=== PATIENT | male | born 2000 | race Caucasian/White ===

== ENCOUNTER 2023-08-14 14:37 | Emergency (ER) | payer BC, SELFPAY ==
[2023-08-14 14:37] VITALS: BP 122/74; PULSE 94; RESP 18; TEMP 35.5; O2SAT 95; BMI 21.5
--- NOTE | 2023-08-14 14:46 | CT_ITS ---
STUDY: CT SOFT TISSUE NECK WITH CONTRAST REASON FOR EXAM: Male, 23 years old. FB sensation x 4 days RADIATION DOSAGE (If Supplied By Facility): CTDIvol = ( 15.50 ) mGy, DLP = ( 546.03 ) mGycm TECHNIQUE: The patient was scanned in a multi-detector CT scanner. High resolution transaxial imaging was performed following intravenous administration of IV 75mL [id number]-300. Sagittal and coronal images were reconstructed. Individualized dose optimization techniques were used for this CT. COMPARISON: None. FINDINGS: Normal bilateral parotid glands. Normal bilateral cottrell operator spaces. Normal bilateral parapharyngeal spaces. Normal bilateral carotid spaces. Normal bilateral sublingual and submandibular glands and spaces. Normal visualized nasopharynx. Normal retropharyngeal space. Normal perivertebral space. Normal visualized bilateral faucial tonsils. The visualized tongue, tongue base and oropharynx are normal. The visualized cervical lymph nodes (levels I-) are within normal size limits, and maintain normal morphology. There is no demonstrated solid or cystic mass lesion. There is no abnormal contrast enhancement. Normal epiglottis, bilateral vallecula and hypopharynx. The pre-epiglottic and paraglottic adipose spaces are normal. Normal visualized bilateral piriform sinuses, aryepiglottic folds, vocal cords, and arytenoid-cricoid articulations. Normal subglottic trachea. Normal bilateral lobes of the thyroid gland. Normal visualized pulmonary apices. Normal visualized paranasal sinuses. Normal visualized cervical spine. CT/Soft Tissue Neck WITH Contrast IMPRESSION: Normal enhanced CT examination of the soft tissues of the neck. Electronically Signed: Saul Cope MD at 15:20 EDT ,
--- NOTE | 2023-08-14 14:48 | EX.ED.DYSGE1 ---
HPI History of Present Illness Chief Complaint: Foreign Body Detail of Chief Complaint: Patient presents with complaint of foreign body sensation noted of the ster Informant: patient Onset/Context/Timing Onset: Days Context: Sudden Onset Timing: Continuous and Waxes and wanes Quality: Foreign body sensation Location: Area of the sternal notch Current Severity: Mild Maximum Severity: Moderate Worsened by: Eating or drinking Relieved by: Nothing Associated Symptoms Associated Symptoms: No change in voice, fever or chills. Question weight loss Narrative Narrative: Patient is 23-year-old male who [facility]. He was sent to the ER by Tracy who saw him. She did call prior to his arrival. Last 3 to 4 days he complains of a foreign body sensation. He has had gagging which she has not had in the past. He feels there is something stuck. He still states 20 attempted to take a Claritin pill he had trouble swallowing. He states he is able to drink liquids with no problem. He does have history of reflux. He denies eructation. He denies waking up in the middle night because of burning sensation in his throat. He denies shortness of breath, wheezing. Tracy informed me that he almost vomited at the [facility]. He is having no sensation of nausea or vomiting at this time. There is no family history of leukemia, lymphoma esophageal cancer etc. Prior similar symptoms: No Recent Illness/Hospitalization: No PFSH PFSH Medical History no medical history Home Medications pantoprazole 40 mg tablet,delayed release (Protonix) 40 mg PO DAILY #30 tabs 08/14/23 [Rx Last Taken Unknown] Allergy/AdvReac Type Severity Reaction Status Date / Time No Known Allergies Allergy Verified 08/14/23 14:38 Social History (Updated 08/14/23 @ 14:[address] Leopoldo Alberto MD) household members: significant other Smoking Status: Current some day smoker tobacco type: cigarettes ROS ROS ED Constitutional Constitutional ED: Denies chills, fever(s), subjective or sweats Eyes Eyes: Denies blurry vision, change in vision or diplopia ENT ENT ED: Denies ear pain, rhinorrhea or sore throat Cardiovascular Cardiovascular: Denies chest pain, palpitations or racing heartbeat Respiratory/Chest Respiratory/Chest: Denies cough, dyspnea or dyspnea on exertion Gastrointestinal Gastrointestinal: Reports nausea and vomiting Psychiatric Psychiatric: Reports anxiety Endocrine Endocrinology: Denies cold intolerance or heat intolerance Hematologic/Lymphatic Hematologic/Lymphatic: Reports systems reviewed and no addt'l complaints, except as documented EXAM Physical Exam Const Vital Signs: 08/14/23 14:37 08/14/23 14:47 Temperature 96 F L Temperature Source Temporal Pulse Rate 94 Respiratory Rate 18 Respiratory Effort Normal Non-Labored Respiratory Pattern Normal Blood Pressure 122/74 H Blood Pressure Mean 90 Pulse Ox 95 Oxygen Delivery Method Room Air Positive well nourished and well developed General Appearance ED: well developed and NAD HEENT Reports moist mucous membranes HEENT Narrative: Head is atraumatic normocephalic. Nares patent. Posterior pharynx is normal. Eyes PERRL and EOMs intact bilaterally General Eye ED: Negative for pale conjunctiva or scleral icterus Neck no lymphadenopathy, supple and no JVD Neck Narrative: Question of rumbling sounds auscultation over the larynx on expiration only. Chest Wall inspection of chest normal and palpation of chest normal Resp normal respiratory effort and clear to auscultation bilaterally Cardio regular rate, regular rhythm, S1 normal heart sound, S2 normal heart sound and no murmurs GI normal to inspection, nondistended, normoactive bowel sounds, non-tender and non-distended; Negative for hepatosplenomegaly Neuro oriented x3 and CN's II-XII intact bilaterally Psych mental status grossly normal Skin Skin Narrative: Patient has dry skin noted. Otherwise dermatologic exam is unremarkable. MDM MDM MDM Narrative Medical decision making narrative: With foreign body sensation for 3 to 4 days affecting his activity and gagging dry heaves will obtain CT of the neck to evaluate for any anatomical anomaly. This may represent problems related to reflux. History & Record Review Additional record(s) reviewed:: Prior labs and No prior records Lab Data Attestation: I reviewed the patient's lab results. Lab results narrative: White count is slightly elevated with shift. There is no bandemia. H&H and indices are normal. Sed rate is less than 1. Comprehensive metabolic panel is remarkable glucose of 118 otherwise unremarkable with a normal CO2 anion gap. Alkaline phosphatase normal. Calcium normal. Albumin is normal. Labs: Laboratory Results - last 24 hr 08/14/23 14:54 WBC 12.2 H RBC 5.24 Hgb 16.0 Hct 47.8 MCV 91.2 MCH 30.5 MCHC 33.5 RDW Std Deviation 43.4 RDW Coeff of Jennifer 12.9 Plt Count 282 MPV 10.5 Immature Gran % (Auto) 0.300 Neut % (Auto) 83.7 H Lymph % (Auto) 10.3 L Christian % (Auto) 5.1 Eos % (Auto) 0.3 Baso % (Auto) 0.3 Absolute Neuts (auto) 10.2 H Absolute Lymphs (auto) 1.25 Nucleated RBC % 0 ESR < 1 Sodium 139 Potassium 3.4 L Chloride 107 Carbon Dioxide 24.0 Anion Gap 8 BUN 9 Creatinine 1.04 Estim Creat Clear Calc 98.49 Est GFR (MDRD) Af Amer 115 Est GFR (MDRD) Non-Af 95 BUN/Creatinine Ratio 8.7 L Glucose 118 H Calcium 10.0 Total Bilirubin 0.70 AST 14 L ALT 36 Alkaline Phosphatase 74 Total Protein 8.0 Albumin 4.7 Globulin 3.3 Albumin/Globulin Ratio 1.4 Radiography Diagnostic Testing: Clinical Impression(s) from Imaging Studies Soft Tissue Neck CT 08/14/23 14:46 IMPRESSION: Normal enhanced CT examination of the soft tissues of the neck. Electronically Signed: Saul Cope MD at 15:20 EDT , Treatment and Re-Evaluation :: Patient was informed of his results. Suspect this is probably related to GERD. Will refer to Dr. Shoemaker for possible EGD and Dr. Dubon for possible indirect laryngoscopy to determine if there is any changes of the epiglottis or proximal esophageal area that would suggest reflux and cause of his symptoms. Will place patient on PPI. Discharge Plan Triage Chief Complaint: Foreign Body ED Provider: RemyLeopoldo Dx/Rx/DC Orders Clinical Impression: Leukocytosis, Hx of gastroesophageal reflux (GERD), Foreign body sensation in throat Instructions: GERD Lifestyle Changes, ED GERD (Adult) Prescriptions: New pantoprazole [Protonix] 40 mg tablet,delayed release (DR/EC) 40 mg PO DAILY Qty: 30 0RF Primary Care Provider: Care Physician,No Primary Referrals: Leeroy Qureshi MD [Med Staff - Active Staff] - 1 Week Perfecto Shoemaker DO [Med Staff - Active Staff] - 1 Week Care Physician,No Primary [Primary Care Provider] - Disposition Disposition: Home, Self Care
[2023-08-14 15:13] LABS: Erythrocyte Sedimentation Rate < 1 mm/hr (0-20)
[2023-08-14 15:16] LABS: Absolute Lymphocyte Count 1.25 X10^3/uL (0.83-4.51); Absolute Neutrophil Count 10.2 X10^3/uL (2.0-7.7); Basophil# 0.04 X10^3/uL; Basophil% 0.3 % (0-1); Eosinophil# 0.04 X10^3/uL; Eosinophils% 0.3 % (0-5); Hematocrit 47.8 % (40-54); Lymphocyte # 1.25 X10^3/ul (0.83-4.51); Lymphocyte % 10.3 % (19-41); Mean Corp Hgb Conc 33.5 g/dL (32-36); Mean Corpuscular Hgb 30.5 pg (27.0-32.0); Mean Corpuscular Volume 91.2 fL (80-94); Mean Platelet Vol. 10.5 fl (6.2-12.0); Monocyte# 0.62 X10^3/uL; Monocyte% 5.1 % (0-10); NRBC Flagged by Analyzer 0 % (0-5); Neutrophil # 10.18 X10^3/uL (2.7-7.7); Neutrophil % 83.7 % (47-70); Platelet Count 282 K/mm3 (150-450); RBC Distribution Width CV 12.9 % (11.6-14.6); RBC Distribution Width SD 43.4 fl (35.1-43.9); Red Blood Count 5.24 M/mm3 (4.6-6.2); White Blood Count 12.2 K/mm3 (4.4-11.0)
[2023-08-14 15:44] LABS: ALB/GLOB Ratio 1.4 RATIO (0.9-2.4); AST(SGOT) 14 U/L (15-37); Alanine Aminotransfer ALT/SGPT 36 U/L (16-61); Albumin, Serum 4.7 g/dL (3.2-5.0); Alkaline Phosphatase 74 U/L (45-117); Anion Gap 8 (5-15); BUN 9 mg/dL (7-18); BUN/Creat Ratio 8.7 RATIO (10-20); Chloride 107 mmol/L (98-107); Creatinine, Serum 1.04 mg/dL (0.70-1.30); EST Glomerular Filtration Rate 95 mL/min (>60); Est Glom Filt Rate - Afr Amer 115 mL/min (>60); Estimated Creatinine Clearance 98.49 ml/min; Globulin 3.3 g/dL (2.2-4.2); Glucose 118 mg/dL (74-106); Potassium 3.4 mmol/L (3.5-5.1); Sodium Level 139 mmol/L (136-145)
[2023-08-14 16:13] VITALS: BP 116/61; PULSE 88; RESP 16; TEMP 37.1; O2SAT 96
== END 2023-08-14 16:14 | disposition home or self-care (01) ==
PROVIDERS: Emergency Provider Emergency Medicine; Visit Provider Emergency Medicine
DX: R09.A2 Foreign body sensation, throat (principal); D72.829 Elevated white blood cell count, unspecified; F17.210 Nicotine dependence, cigarettes, uncomplicated; K21.9 Gastro-esophageal reflux disease without esophagitis
CPT/HCPCS: 70491; 80053; 85025; 85652; 99284; Q9967; A4216